=== PATIENT | male | born 1980 | race Caucasian/White ===

== ENCOUNTER → 2020-06-26 12:33 | Outpatient (CLI) | payer OTHER, SELFPAY ==
--- NOTE | 2020-06-26 | DI.RAD.S_ITS ---
PROCEDURE: FL ARTHROGRAM WRIST RT INDICATIONS: Right wrist pain COMPARISON: None. TECHNIQUE: After informed consent had been obtained, the wrist was examined fluoroscopically, and a site chosen for injection of the radiocarpal compartment from a dorsal approach. Skin was prepped and draped in a sterile fashion and 1% lidocaine infiltrated from the skin down to the articular surface. A hypodermic needle was then introduced into the articular space and a modest amount of contrast medium was instilled confirming intra-articular needle tip placement. This was followed by approximately 4 mL of a dilute gadolinium solution. Needle was removed and dressing was applied. The patient experienced no complications throughout the procedure and left the fluoroscopic suite in no apparent distress. FINDINGS: A single fluoroscopic spot image demonstrates intra-articular location to injected iodinated contrast. IMPRESSION: Successful fluoroscopic-guided administration of dilute Gadolinium solution for wrist MR arthrogram. Dictated by: Annette Randall MD, PhD on 06/26/2020 at 13:39 Approved by: Annette Randall MD, PhD on 06/26/2020 at 13:40
--- NOTE | 2020-06-26 | DI.MRI.S_ITS ---
PROCEDURE: MR WRIST RT W CON INDICATIONS: Right wrist pain TECHNIQUE: After the administration of 3-4 mL of dilute intra-articular Gadolinium contrast into the radiocarpal compartment, coronal T1 spin echo with fat saturation and T2 fast spin echo with fat saturation, axial T1 spin echo and T2 fast spin echo with fat saturation, sagittal T1 spin echo with and without fat saturation through the wrist. COMPARISON: [facility], MR, MR WRIST RIGHT WITHOUT CONTRAST, 04/19/2020, 10:27. [facility] [place], CR, XR WRIST 3+ VIEWS RIGHT, 06/12/2020, 11:51. FINDINGS: Image quality: Excellent. Bones and cartilage: The carpal bones are normally aligned. No bone marrow contusions or fractures. No evidence for avascular necrosis. Overlying cartilage surfaces appear normal. Carpal ligaments: The scapholunate and lunotriquetral ligaments appear intact, without gadolinium extravasation into the mid-carpal compartment. There are small lobulated ganglion cysts along the volar radial aspect of the wrist suggesting partial tearing of the extrinsic radioscaphocapitate and radiolunotriquetral ligaments. The dorsal intercarpal and radiotriquetral ligaments appear intact. On sagittal images, the pisohamate ligament appears intact. Triangular fibrocartilage complex: The triangular fibrocartilage disc, with its styloid and foveal lamina, appears intact. No gadolinium extravasation into the distal radioulnar joint. The adjacent meniscal homolog appears within normal limits. The ulnar collateral ligament appears intact. The extensor carpi ulnaris tendon is normal in location and morphology. Tendons and soft tissues: The carpal tunnel structures appear normal, including the median nerve. The ulnar nerve appears normal within Guyon's canal. All six extensor tendon compartments demonstrate normal morphology, without pathologic tendon sheath fluid. IMPRESSION: 1. Mildly attenuated appearance of the extrinsic radioscaphocapitate and radiolunotriquetral ligaments with associated small lobulated ganglion cysts suggestive of mild partial tearing. 2. Extensor tendons appear intact dorsally. Dictated by: Silverio Stephen M.D. on 06/26/2020 at 16:46 Approved by: Silverio Stephen M.D. on 06/26/2020 at 17:00
== END ==
PROVIDERS: Referring Provider Orthopaedic Surgery; Visit Provider Orthopaedic Surgery
DX: M25.531 Pain in right wrist (principal)
CPT/HCPCS: 20605; 25246; 73222; 77002

== ENCOUNTER 2022-12-13 08:53 | Day surgery (SDC) | payer OTHER, SELFPAY ==
--- NOTE | 2022-12-13 | PATH_ITS ---
[facility] Accession Number: [id number] No. of containers..02 Tissue . 01 Material submitted: . PART A: stomach - ANTRUM PART B: esophagus, E-G Junction - GE JUNCTION . 01 Diagnosis: A. Stomach, Antrum, Biopsy: Antral mucosa with mild chronic gastritis. Negative for Helicobacter by immunohistochemistry. Negative for intestinal metaplasia. Negative for dysplasia and malignancy. . B. Gastroesophageal Junction, Biopsy: Squamocolumnar junctional mucosa with no diagnostic abnormality. Negative for intestinal metaplasia. Negative for dysplasia and malignancy. . [facility] 12/17/2022 1552 Local . 01 Electronically signed: . Zohreh Rea MD, Pathologist NPI- [id number] . 01 Gross description: . Part A: ANTRUM: Received in formalin is 1 fragment(s) of hurtado, soft tissue measuring 0.4 x 0.3 x 0.1 cm submitted entirely in 1 cassette(s) Part B: GE JUNCTION: Received in formalin is 1 fragment(s) of hurtado, soft tissue measuring 0.1 x 0.1 x 0.1 cm submitted entirely in 1 cassette(s) /[facility] 12/14/2022 1630 Local . 01 Microscopic: . A. An immunohistochemical stain was performed to evaluate for Helicobacter organisms and is negative. The control stain showed appropriate reactivity. . B. An AB/PAS stain was performed to evaluate for intestinal metaplasia and is negative. The control stain showed appropriate reactivity. . * This test was developed and its performance characteristics determined by [employer]. It has not been cleared or approved by the U.S. Food and Drug Administration. The FDA has determined that such clearance or approval is not necessary. This test is used for clinical purposes. It should not be regarded as investigational or for research. . 01 Pathologist provided ICD-10: R12 . 01 CPT . 275129, 596637, 560336, S42381 Specimen Comment: A courtesy copy of this report has been sent to [phone] Performed at: [address] [id number] MD Silverio Pickett MD Phone: [phone]
[2022-12-13 09:28] VITALS: BP 154/96; PULSE 94; RESP 16; O2SAT 97; BMI 32.5
--- NOTE | 2022-12-13 09:36 | PM.HP.1 ---
History of Present Illness History of Present Illness Date Patient Seen: 12/13/22 Time Patient Seen: 09:37 Chief complaint: EGD Narrative: I reviewed the recent office note. No significant changes. CT scan has been done but it was ?fell and I do not see the results of this in the computer yet. Patient id GUILLERMO has been on anti-reflux medications for many years. Currently he is successfully using AcipHex. He is never had Barretts screening. Meds Home Medications and Allergies Home Medications Medication Instructions Recorded Confirmed Type escitalopram oxalate 20 mg tablet 20 mg DAILY 12/13/22 12/13/22 History losartan 100 1 tab PO DAILY 12/13/22 12/13/22 History mg-hydrochlorothiazide 12.5 mg tablet rabeprazole 20 mg tablet,delayed 20 mg PO DAILY 12/13/22 12/13/22 History release (AcipHex) Allergies Allergy/AdvReac Type Severity Reaction Status Date / Time No Known Drug Allergies Allergy Verified 12/13/22 09:08 Review of Systems Review of Systems ROS: Yes All systems reviewed with the patient and are negative except as otherwise documented Exam Const General: cooperative HENMT Head: normal to inspection Eyes General: appearance normal, both eyes and all related structures Neck Neck: normal visual inspection Chest Chest: normal inspection of the chest Resp Effort & Inspection: normal respiratory effort Cardio Rate: regular rate GI Inspection: normal to inspection Skin General: no rashes or lesions noted Neuro General: patient alert and patient awake Extrem General: normal to inspection and no pedal edema Psych Appearance: grossly normal Assessment & Plan Assessment & Plan narrative: 42-year-old male with chronic longstanding reflux and relatively new onset nausea vomiting. EGD is pursued today.
--- NOTE | 2022-12-13 09:38 | PM.PREOP ---
Pre-operative Note Interval Note History & Physical reviewed/Exam performed by Physician: Yes Changes to H&P: No ASA Class (for procedural sedation): II
[2022-12-13] MEDS: LACTATED RINGERS 1,000 ML 100 ML IV (09:47)
--- NOTE | 2022-12-13 11:20 | PM.OP.EGD ---
Operative Date/Time/Diagnoses Date of procedure: 12/13/22 Time of procedure: 11:20 Pre-op diagnosis: Chronic GERD, new onset nausea vomiting Post-op diagnosis: same Procedure & Clinicians Study performed: EGD with biopsies Same procedure as scheduled: Yes Indications: Chronic GERD new onset nausea vomiting Surgeon: Phill Lares Procedure Notes SCOAP/Timeout: Done Procedure in detail: After the risks and benefits were explained, written and verbal informed consent was obtained. The patient was brought into the procedure room and placed into the left lateral decubitus position. Please see anesthesia notes for sedation details. The scope was introduced into the mouth through the bite block and advanced under direct visualization to the 2nd portion of the duodenum. The scope was slowly withdrawn carefully examining the mucosa for any defects or lesions. Retroflexed views were accomplished in the stomach. The stomach was decompressed, the scope was then removed from the patient who tolerated the procedure well. Sedation minutes: 7 Complications: none Impression: 1. Duodenum: This was normal from the bulb through to the 2nd portion. 2. Stomach: Diffuse gastropathy characterized by erythematous mucosa was noted. Antral biopsies were taken for exclusion of H pylori infection. No ulcers no outlet obstruction no mass lesions retroflexed views of the LES were unremarkable. 3. Esophagus: GEJ was at 39 cm from the incisors. The Z-line wondered ever so slightly and there may have been a tongue of salmon-colored mucosa extending up for about 5 mm in the distal esophagus. This area was targeted for biopsy. No evidence of any acute erosive esophagitis. There was a subtle perhaps 1-2 cm sliding hiatal hernia. There was a normal-appearing inlet patch just below the UES. No additional pathology was appreciated throughout the esophagus. Endoscopic diagnosis 1. Small sliding hiatal hernia 2. Variable Z-line concerning for a short tongue of Hsieh's-biopsied 3. Gastropathy Post-procedure Plan for aftercare: 1. Await histopathology 2. Continue anti-reflux therapy. 3. Follow up trend in [place] on recent imaging Disposition: PACU
[2022-12-13 11:26] VITALS: BP 134/89; PULSE 106; RESP 16; TEMP 36.8; O2SAT 94
[2022-12-13 11:32] VITALS: BP 149/89; PULSE 90; RESP 16; TEMP 36.8; O2SAT 96
[2022-12-13 11:39] VITALS: BP 136/99; PULSE 96; RESP 16; TEMP 36.8; O2SAT 98
[2022-12-13 11:41] VITALS: BP 136/88; PULSE 92; RESP 16; TEMP 36.8; O2SAT 98
== END 2022-12-13 11:53 | disposition home or self-care (01) ==
PROVIDERS: PCP Family Medicine; Referring Provider Internal Medicine Gastroenterology; Visit Provider Internal Medicine Gastroenterology
PROC: 0DJ08ZZ Inspection of Upper Intestinal Tract, Via Natural or Artificial Opening Endoscopic (ICD-10-PCS; CPT 43235; principal; 2022-12-13 10:30)
DX: K29.50 Unspecified chronic gastritis without bleeding (principal); K21.9 Gastro-esophageal reflux disease without esophagitis; K31.9 Disease of stomach and duodenum, unspecified; K44.9 Diaphragmatic hernia without obstruction or gangrene
CPT/HCPCS: 43239; J2704